=== PATIENT | male | born 1980 | race African-American/Black ===

== ENCOUNTER 2018-12-28 13:30 | Emergency (ER) | payer MEDICAID | END 2018-12-28 16:01 | disposition home or self-care (01) | LOC: FTE 13:30 | DX: S09.92XA Unspecified injury of nose, initial encounter (principal); X58.XXXA Exposure to other specified factors, initial encounter; Y92.9 Unspecified place or not applicable; Z87.891 Personal history of nicotine dependence | CPT/HCPCS: 99283; Z7502 ==